=== PATIENT | female | born 2000 | race Caucasian/White ===

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

== ENCOUNTER 2018-03-06 12:11 | Emergency (ER) | payer OTHER ==
[~2018-03-06] VITALS: Ht 160 cm; Wt 66.1 kg
[2018-03-06] MEDS ORDERED: ACETAMINOPHEN 500 MG TABLET PO ONE (13:00)
[2018-03-06] MEDS ORDERED: SODIUM CHLORIDE FLUSH 10ML SYR IVF ONE (13:00)
[2018-03-06] MEDS ORDERED: SODIUM CHLORIDE 0.9% 1,000ML IVBOLUS ONE ×2 (13:00→14:30)
[2018-03-06] MEDS ORDERED: ACETAMINOPHEN 500 MG TABLET ONE (13:11)
[2018-03-06 13:34] LABS: MEAN CORPUSCULAR HGB CONC 35.2 g/dL (32.4-35.8); MEAN CORPUSCULAR VOLUME 85.2 fL (80-100); MEAN PLATELET VOLUME 7.5 fL (7.4-10.4); PLATELET COUNT 252 x10^3/uL (130-400); RED BLOOD COUNT 4.89 x10^6/uL (3.82-5.3); RED CELL DISTRIBUTION WIDTH 12.1 % (9.6-15.2)
[2018-03-06 13:40] LABS: ALANINE AMINOTRANSFERASE 20 U/L (12-78); ANION GAP 9 mmol/L (5-15); CALCIUM 9.4 mg/dL (8.5-10.1); CHLORIDE 103 mmol/L (98-107); CREATININE 1.12 mg/dL (0.55-1.02)
[2018-03-06 13:45] LABS: ALKALINE PHOSPHATASE 69 U/L (45-117); BILIRUBIN,TOTAL 1.1 mg/dL (0.2-1.0); TOTAL PROTEIN 8.5 g/dL (6.4-8.2)
[2018-03-06 13:53] LABS: MD YES
[2018-03-06 13:54] LABS: BAND#(MANUAL) 1.96 x10^3/uL; BANDS%(MANUAL) 13 % (0-7); LYMPH#(MANUAL) 1.21 x10^3/uL (1-6.1); LYMPHS% (MANUAL) 8 % (22-44); SEG#(MANUAL) 11.93 x10^3/uL (1.8-8); SEGS% (MANUAL) 79 % (42-75)
[2018-03-06 13:55] LABS: <PLATELET ESTIMATE> ADEQUATE; <PLT MORPHOLOGY> NORMAL PLT MORPH; <RBC MORPHOLOGY> NORMAL
[2018-03-06] MEDS ORDERED: CEFTRIAXONE PMX 1GM/50ML 50 ML ONE (14:15)
[2018-03-06 14:25] LABS: MICROSCOPIC AUTO
[2018-03-06 14:26] VITALS: BP 96/58
[2018-03-06] MEDS ORDERED: CEFTRIAXONE PMX 1GM/50ML 50 ML IVPB ONE (14:30)
[2018-03-06 14:46] LABS: CULTURE INDICATED? NO
== END 2018-03-06 15:52 | disposition home or self-care (01) ==
LOC: ED 14:46
DX: R50.9 Fever, unspecified (principal); R51 Headache
CPT/HCPCS: 36415; 80053; 81001; 83605; 84145; 84703; 85025; 87040; 96361; 96374; 99284; J0696; J7030